=== PATIENT | female | born 1980 | race Caucasian/White ===

== ENCOUNTER 2023-07-20 10:50 | Emergency (ER) | payer SELFPAY ==
[~2023-07-20] VITALS: Ht 170.2 cm; Wt 88.5 kg
[2023-07-20 10:58] VITALS: BP 141/83; PULSE 81; RESP 18; TEMP 98; O2SAT 96
[2023-07-20] MEDS ORDERED: IBUP-2213 PO (12:21)
== END 2023-07-20 12:29 | disposition home or self-care (01) ==
LOC: MED 10:50
DX: M54.2 Cervicalgia (principal); R06.02 Shortness of breath; F17.200 Nicotine dependence, unspecified, uncomplicated; Z98.890 Other specified postprocedural states
CPT/HCPCS: 93005; 99283